=== PATIENT | female | born 1950 | race Caucasian/White ===

== ENCOUNTER 2019-01-22 09:23 | Day surgery (SDC) | payer MEDICARE ==
[~2019-01-22 09:23] MED LIST: Sodium Chloride 0.9% 1,000 ML IV SCH
[2019-01-22] MEDS ORDERED: Metoclopramide 10 MG/2 ML SDV IV PRN (09:56)
[2019-01-22] MEDS ORDERED: Propofol 1,000 MG/100 ML SDV ONE (12:45)
--- NOTE | 2019-01-22 19:23 | OR ---
DATE OF OPERATION: 01/22/2019 SURGEON: Max Sheets MD PREOPERATIVE DIAGNOSIS: Screening colonoscopy. POSTOPERATIVE DIAGNOSIS: Screening colonoscopy. PROCEDURE: Colonoscopy. ANESTHESIA: MAC. ESTIMATED BLOOD LOSS: None. COMPLICATIONS: None. INDICATION FOR THE PROCEDURE: The patient is a 68-year-old female who is here today for screening colonoscopy. Last colonoscopy was approximately 13 years ago. Denies any change in bowel habits since that time. DESCRIPTION OF THE PROCEDURE: Informed consent was obtained from the patient. The patient was taken to the operating room and placed on the table in left lateral decubitus position. Monitored anesthesia care was administered. Digital rectal exam was performed and was normal. Colonoscope was then advanced through the anus and directed toward the cecum. Cecum was reached and identified by appendiceal orifice as well as ileocecal valve. The colonoscope and then slowly withdrawn. No masses. No polyps. No areas of ischemia or inflammation. No diverticula noted. The patient did have a tortuous sigmoid colon, which required changing to a peds colonoscope as well. The colonoscope was then slowly withdrawn and decompressed on the way out. Rectum also appeared to be normal. Colonoscope was then withdrawn. FINDINGS: Normal colonoscopy. RECOMMENDATIONS: Would recommend repeat screening colonoscopy in 10 years. KIMBERLY/BIRGIT /[id number]
== END 2019-01-22 14:00 | disposition home or self-care (01) ==
LOC: LB.SDS 09:23
PROVIDERS: ATTEND Surgery
DX: Z12.11 Encounter for screening for malignant neoplasm of colon (principal); K63.89 Other specified diseases of intestine; E03.9 Hypothyroidism, unspecified; H40.9 Unspecified glaucoma; R35.0 Frequency of micturition; M19.90 Unspecified osteoarthritis, unspecified site; Z79.899 Other long term (current) drug therapy
CPT/HCPCS: G0121; J2704; J7030

== ENCOUNTER 2023-03-25 09:25 | Emergency (ER) | payer MEDICARE ==
[2023-03-25] MEDS ORDERED: Sodium Chloride 0.9% 10 ML Syringe FLUSH PRN (09:45)
[2023-03-25 09:55] LABS: HEMATOCRIT 30.6 % (37.0-47.0); HEMOGLOBIN 9.8 g/dL (11.5-16.5); MEAN CORPUSCULAR HEMOGLOBIN 25.7 pg (27.0-32.0); MEAN PLATELET VOLUME 8.1 fL (6.0-10.0); RED BLOOD CELL COUNT 3.81 M/uL (3.80-5.80); RED CELL DISTRIBUTION WIDTH 15.3 % (11.0-16.0); WHITE BLOOD CELL COUNT,WBC 10.1 K/uL (4.0-11.0)
[2023-03-25 10:24] LABS: A/G RATIO 0.5 (0.8-2.0); ALBUMIN 2.8 g/dL (3.4-5.0); ANION GAP 13.6 mmol/L (5.0-15.0); BILIRUBIN TOTAL 0.5 mg/dL (0.0-1.0); CARBON DIOXIDE,CO2 26.4 mmol/L (21.0-32.0); CREATININE 0.5 mg/dL (0.55-1.02); EST CRCL DRUG DOSING (CG) 89.11 mL/min; MAGNESIUM 2.2 mg/dL (1.8-2.4); PHOSPHORUS 3.4 mg/dL (2.5-4.9); PROTEIN TOTAL,TP 8.1 g/dL (6.4-8.2); TROPONIN I HIGH SENSITIVITY 18.5 pg/ml (<=60.4)
[2023-03-25] MEDS: Sodium Chloride 0.9% 50 ML SDV FLUSH SCH (11:22)
[2023-03-25] MEDS: Iopamidol 755 Mg/ML 100 ML Bottle IV PRN (11:22)
[2023-03-25] MEDS: Morphine 4 MG/ML VIAL IVPUSH ONE (13:15)
[2023-03-25] MEDS: Morphine 4 MG/ML VIAL ONE (13:17)
[2023-03-25] MEDS: Metoprolol Tartrate 5 MG/5 ML SDV IVPUSH STA (13:28)
[2023-03-25] MEDS: Metoprolol Tartrate 5 MG/5 ML SDV ONE (13:29)
[2023-03-25] MEDS: Metoprolol Tartrate 5 MG in Sodium Chloride 0.9% 50 ML IV ONE ×2 (14:44→14:45)
== END 2023-03-25 14:30 | disposition home or self-care (01) ==
LOC: LB.ED 09:25
DX: I31.39 Other pericardial effusion (noninflammatory) (principal); R07.89 Other chest pain; E03.9 Hypothyroidism, unspecified; Z79.899 Other long term (current) drug therapy; Z91.011 Allergy to milk products; Z91.018 Allergy to other foods
CPT/HCPCS: 36415; 71045; 71260; 80053; 83735; 84100; 84443; 84484; 85027; 85379; 93005; 93010; 96374; 96375; 99283; 99285-25; J2270; J3490; Q9967